=== PATIENT | male | born 1990 | race Hispanic/Latino ===

== ENCOUNTER 2017-07-23 11:08 | Emergency (ER) | payer MEDICAID, OTHER ==
[2017-07-23 11:14] VITALS: BP 116/72; PULSE 94; TEMP 97; O2SAT 98; BMI 28.5
--- NOTE | 2017-07-23 12:11 | ED PDOC ---
HPI: Skin/Bite Injury Time Seen by Provider: 07/23/17 11:26 Chief Complaint (Nursing): Abnormal Skin Integrity Chief Complaint (Provider): Drainage for cyst, lower back History Per: Patient History/Exam Limitations: no limitations Onset/Duration Of Symptoms: Days (3) Current Symptoms Are (Timing): Still Present Quality Of Symptoms: Painful Severity: Moderate Pain Scale Rating Of: 5 Additional Complaint(s): Pt reports tender cyst for 3 days which has been draining for 1 day. Pt states the area is above buttocks.. Pt denies similar in the past. No fever/chills Past Medical History Reviewed: Historical Data, Nursing Documentation, Vital Signs Vital Signs: Last Vital Signs Temp 97 F L 07/23/17 11:13 Pulse 94 H 07/23/17 11:13 Resp BP 116/72 07/23/17 11:13 Pulse Ox 98 07/23/17 11:13 - Medical History PMH: No Chronic Diseases - Surgical History Surgical History: No Surg Hx - Family History Family History: States: No Known Family Hx - Living Arrangements Living Arrangements: With Family - Social History Current smoker - smoking cessation education provided: No - Home Medications Home Medications: Ambulatory Orders Medication Instructions Recorded Clindamycin [Cleocin] 300 mg PO QID #40 cap 07/23/17 - Allergies Allergies/Adverse Reactions: Allergies Allergy/AdvReac Type Severity Reaction Status Date / Time No Known Allergies Allergy Verified 07/23/17 11:24 Review of Systems ROS Statement: Except As Marked, All Systems Reviewed And Found Negative Constitutional: Negative for: Fever, Chills, Malaise Skin: Positive for: Other Physical Exam - Reviewed Nursing Documentation Reviewed: Yes Vital Signs Reviewed: Yes - Physical Exam Appears: Positive for: Well, Non-toxic, No Acute Distress Head Exam: Positive for: ATRAUMATIC, NORMAL INSPECTION, NORMOCEPHALIC Skin: Positive for: Warm. Negative for: Normal Color (Actively draining abscess , gluteal cleft, fluctulant with localized erythema ) Eye Exam: Positive for: Normal appearance ENT: Positive for: Normal ENT Inspection Neck: Positive for: Normal, Painless ROM Respiratory: Negative for: Accessory Muscle Use, Respiratory Distress Back: Positive for: Normal Inspection Extremity: Positive for: Normal ROM Neurologic/Psych: Positive for: Alert, Oriented - ECG O2 Sat by Pulse Oximetry: 98 Medical Decision Making Medical Decision Making: Discussed warm sitz baths and antibiotics.F/u with surgery once localized infection has improved. Disposition - Clinical Impression Clinical Impression: Pilonidal abscess - Patient ED Disposition Is Patient to be Admitted: No Counseled Patient/Family Regarding: Diagnosis, Need For Followup, Rx Given - Disposition Disposition: Routine/Home Disposition Time: 11:54 Condition: GOOD Prescriptions: Clindamycin [Cleocin] 300 mg PO QID #40 cap Instructions: Abscess (ED)
== END 2017-07-23 13:17 | disposition home or self-care (01) ==
LOC: H.ER 11:08
DX: L05.01 Pilonidal cyst with abscess (principal)